=== PATIENT | female | born 1980 | race Caucasian/White ===

== ENCOUNTER 2016-05-20 17:10 | Emergency (ER) | payer OTHER ==
[~2016-05-20] VITALS: Ht 170.2 cm; Wt 68.2 kg
[2016-05-20] MEDS ORDERED: QUET200T PO (17:40)
[2016-05-20 20:13] LABS: BASOPHILS % (AUTO) 0.6 % (0.0-2.0); HEMATOCRIT 40.9 % (36-46); HEMOGLOBIN 13.3 g/dL (12.0-16.0); LYMPHOCYTES # (AUTO) 2.5 K/uL (1.0-4.8); LYMPHOCYTES % (AUTO) 29.6 % (22.0-44.0); MEAN CORPUSCULAR HEMOGLOBIN 29.1 pg (26.0-34.0); MEAN CORPUSCULAR HGB CONC 32.7 G/dL (31.0-37.0); MEAN CORPUSCULAR VOLUME 89 fL (80-100); MONOCYTES # (AUTO) 0.7 K/uL (0.1-1.0); MONOCYTES % (AUTO) 8.8 % (2.0-9.0); PLATELET COUNT (AUTO) 341 K/uL (150-450); RED BLOOD CELL COUNT(AUTO) 4.59 MIL/uL (4.00-5.20); RED CELL DISTRIBUTION WIDTH 13.5 % (11.5-14.5); WHITE BLOOD COUNT (AUTO) 8.4 K/uL (4.5-11.0)
[2016-05-20 20:25] LABS: ANION GAP 9 mmol/L (8-16); CALCIUM, TOTAL 8.6 mg/dL (8.8-10.5); CARBON DIOXIDE 29 mmol/L (22-29); CHLORIDE 101 mmol/L (98-107); CREATININE 0.76 mg/dL (0.60-1.30); GLOMERULAR FILTR. RATE CALC > 60 mL/min (>60); POTASSIUM 3.5 mmol/L (3.5-5.1); SODIUM SERUM 139 mmol/L (136-145); UREA NITROGEN, BLOOD 9 mg/dL (7-18)
[2016-05-20 20:39] LABS: ALANINE AMINOTRANSFERASE 20 U/L (12-78); ASPARTATE AMINOTRANSFERASE 19 U/L (15-37); BILIRUBIN,TOTAL 0.5 mg/dL (0.1-1.0); TOTAL PROTEIN, SERUM 7.4 g/dL (6.4-8.2)
[2016-05-20 20:54] VITALS: BP 118/78
== END 2016-05-20 21:11 | disposition home or self-care (01) ==
LOC: EMS 17:12 → EEVIPCON 17:12 → EMS 21:11
DX: F25.9 Schizoaffective disorder, unspecified (principal); L55.9 Sunburn, unspecified
CPT/HCPCS: 36415; 80053; 80307; 85025; 99285; G0480

== ENCOUNTER 2016-05-22 17:58 | Inpatient (IN) | payer MEDICAID, OTHER ==
[~2016-05-22] VITALS: Ht 170.2 cm; Wt 68.9 kg
[~2016-05-22 17:58] MED LIST: QUET200T PO
[2016-05-22 18:17] LABS: BASOPHILS % (AUTO) 0.6 % (0.0-2.0); EOSINOPHILS % (AUTO) 0.4 % (1.0-6.0); HEMATOCRIT 41.1 % (36-46); HEMOGLOBIN 13.6 g/dL (12.0-16.0); LYMPHOCYTES # (AUTO) 2.4 K/uL (1.0-4.8); LYMPHOCYTES % (AUTO) 28.5 % (22.0-44.0); MEAN CORPUSCULAR HEMOGLOBIN 28.9 pg (26.0-34.0); MEAN CORPUSCULAR VOLUME 88 fL (80-100); MONOCYTES # (AUTO) 0.6 K/uL (0.1-1.0); MONOCYTES % (AUTO) 7.5 % (2.0-9.0); NEUTROPHILS # (AUTO) 5.3 K/uL (1.8-7.7); PLATELET COUNT (AUTO) 368 K/uL (150-450); RED BLOOD CELL COUNT(AUTO) 4.69 MIL/uL (4.00-5.20); RED CELL DISTRIBUTION WIDTH 13.4 % (11.5-14.5); WHITE BLOOD COUNT (AUTO) 8.4 K/uL (4.5-11.0)
[2016-05-22] MEDS ORDERED: QUEtiapine FUMARATE 100 MG TABLET PO ONE (18:45)
[2016-05-22 18:46] LABS: ANION GAP 8 mmol/L (8-16); CALCIUM, TOTAL 9.2 mg/dL (8.8-10.5); CARBON DIOXIDE 30 mmol/L (22-29); CHLORIDE 103 mmol/L (98-107); CREATININE 0.76 mg/dL (0.60-1.30); GLOMERULAR FILTR. RATE CALC > 60 mL/min (>60); POTASSIUM 3.7 mmol/L (3.5-5.1); SODIUM SERUM 141 mmol/L (136-145); UREA NITROGEN, BLOOD 10 mg/dL (7-18)
[2016-05-22 18:52] LABS: ALANINE AMINOTRANSFERASE 17 U/L (12-78); ALBUMIN 4.2 g/dL (3.4-5.0); ASPARTATE AMINOTRANSFERASE 19 U/L (15-37); BILIRUBIN,TOTAL 0.3 mg/dL (0.1-1.0); TOTAL PROTEIN, SERUM 7.9 g/dL (6.4-8.2)
[2016-05-22] MEDS ORDERED: HALOPERIDOL 5 MG TABLET PO PRN (19:00)
[2016-05-22] MEDS ORDERED: ZOLPIDEM TARTRATE 10 MG TABLET PO PRN (19:00)
[2016-05-22] MEDS ORDERED: LORazepam 2 MG TABLET PO PRN (19:00)
[2016-05-22] MEDS: QUEtiapine FUMARATE 300 MG TABLET PO SCH (20:52)
[2016-05-22 20:54] VITALS: BP 120/75
[2016-05-22] MEDS ORDERED: ACETAMINOPHEN 325 MG TABLET PO PRN (21:45)
[2016-05-22] MEDS ORDERED: IBUPROFEN 400 MG TABLET PO PRN (21:45)
[2016-05-23 08:30] VITALS: BP 120/74
[2016-05-23 16:47] VITALS: BP 113/76
[2016-05-23] MEDS ORDERED: IBUPROFEN 400 MG TABLET PO PRN (20:30)
[2016-05-23] MEDS: QUEtiapine FUMARATE 300 MG TABLET PO SCH (20:31)
[2016-05-24 08:00] VITALS: BP 109/79
[2016-05-24 08:08] LABS: CHOL/HDL RATIO 3.6 (3.9-5.7)
[2016-05-24 18:32] VITALS: BP 113/80
[2016-05-24] MEDS: QUEtiapine FUMARATE 300 MG TABLET PO SCH (21:03)
[2016-05-25 08:50] VITALS: BP 108/87
[2016-05-25 16:30] VITALS: BP 111/76
[2016-05-25] MEDS: QUEtiapine FUMARATE 300 MG TABLET PO SCH (20:05)
[2016-05-26 08:30] VITALS: BP 116/69
[2016-05-26 16:54] VITALS: BP 98/60
[2016-05-26] MEDS: QUEtiapine FUMARATE 300 MG TABLET PO SCH (21:22)
[2016-05-27 06:33] VITALS: BP 110/60
[2016-05-27 08:46] VITALS: BP 123/59
[2016-05-27] MEDS ORDERED: QUEtiapine FUMARATE 200 MG TABLET PO SCH (09:00)
[2016-05-27 19:33] VITALS: BP 98/62
[2016-05-27] MEDS: QUEtiapine FUMARATE 200 MG TABLET PO SCH (20:26)
[2016-05-28 09:42] VITALS: BP 119/74
[2016-05-28 17:52] VITALS: BP 96/57
[2016-05-28] MEDS: QUEtiapine FUMARATE 200 MG TABLET PO SCH (21:29)
[2016-05-29 08:35] VITALS: BP 102/63
[2016-05-29 16:29] VITALS: BP 120/76
[2016-05-29] MEDS: QUEtiapine FUMARATE 200 MG TABLET PO SCH (20:08)
[2016-05-30 08:05] VITALS: BP 100/75
[2016-05-30 17:27] VITALS: BP 98/52
[2016-05-30] MEDS: QUEtiapine FUMARATE 200 MG TABLET PO SCH (21:10)
[2016-05-31 08:39] VITALS: BP 101/60
[2016-05-31 16:32] VITALS: BP_SYST 115; BP_SYST 123; BP_DIAS 66
[2016-05-31] MEDS: QUEtiapine FUMARATE 200 MG TABLET PO SCH (21:23)
[2016-06-01 08:00] VITALS: BP 114/76
[2016-06-01 16:58] VITALS: BP 99/61
[2016-06-01] MEDS: QUEtiapine FUMARATE 200 MG TABLET PO SCH (21:04)
[2016-06-02 08:30] VITALS: BP 116/70
[2016-06-02 19:31] VITALS: BP 107/71
[2016-06-02] MEDS: QUEtiapine FUMARATE 200 MG TABLET PO SCH (20:08)
[2016-06-03 10:10] VITALS: BP 106/68
[2016-06-03] MEDS ORDERED: QUET200T PO (13:33)
== END 2016-06-03 15:00 | disposition home or self-care (01) | DRG 750 ==
LOC: EMS 17:59 → 3EI 19:53
PROVIDERS: ADMIT Psychiatry & Neurology Psychiatry; ATTEND Psychiatry & Neurology Psychiatry
DX: F20.0 Paranoid schizophrenia (principal); I10 Essential (primary) hypertension; F99 Mental disorder, not otherwise specified; Z79.899 Other long term (current) drug therapy
CPT/HCPCS: 83036; 99285; G0480

== ENCOUNTER 2016-06-15 15:21 | Emergency (ER) | payer MEDICAID, OTHER ==
[~2016-06-15] VITALS: Ht 165.1 cm; Wt 77.3 kg
[2016-06-15 15:33] VITALS: BP 133/53
[2016-06-15 16:09] LABS: BASOPHILS % (AUTO) 1.2 % (0.0-2.0); EOSINOPHILS % (AUTO) 1.1 % (1.0-6.0); HEMATOCRIT 39.6 % (36-46); LYMPHOCYTES # (AUTO) 1.8 K/uL (1.0-4.8); LYMPHOCYTES % (AUTO) 23.6 % (22.0-44.0); MEAN CORPUSCULAR HEMOGLOBIN 28.8 pg (26.0-34.0); MEAN CORPUSCULAR HGB CONC 32.7 G/dL (31.0-37.0); MEAN CORPUSCULAR VOLUME 88 fL (80-100); MONOCYTES # (AUTO) 0.6 K/uL (0.1-1.0); MONOCYTES % (AUTO) 8.1 % (2.0-9.0); NEUTROPHILS # (AUTO) 5.1 K/uL (1.8-7.7); PLATELET COUNT (AUTO) 301 K/uL (150-450); RED CELL DISTRIBUTION WIDTH 13.4 % (11.5-14.5); WHITE BLOOD COUNT (AUTO) 7.7 K/uL (4.5-11.0)
[2016-06-15 16:17] LABS: ANION GAP 11 mmol/L (8-16); CALCIUM, TOTAL 7.9 mg/dL (8.8-10.5); CARBON DIOXIDE 26 mmol/L (22-29); CHLORIDE 105 mmol/L (98-107); GLOMERULAR FILTR. RATE CALC > 60 mL/min (>60); POTASSIUM 3.7 mmol/L (3.5-5.1); SODIUM SERUM 142 mmol/L (136-145); UREA NITROGEN, BLOOD 12 mg/dL (7-18)
[2016-06-15 16:22] LABS: ALANINE AMINOTRANSFERASE 16 U/L (12-78); ALBUMIN 3.7 g/dL (3.4-5.0); ASPARTATE AMINOTRANSFERASE 15 U/L (15-37); BILIRUBIN,TOTAL 0.3 mg/dL (0.1-1.0); TOTAL PROTEIN, SERUM 7.4 g/dL (6.4-8.2)
== END 2016-06-15 18:05 | disposition home or self-care (01) ==
LOC: EMS 15:21
DX: F20.9 Schizophrenia, unspecified (principal)
CPT/HCPCS: 36415; 80053; 80307; 85025; 99285; G0480